=== PATIENT | male | born 1975 | race African-American/Black ===

== ENCOUNTER 2025-06-26 18:21 | Emergency (ER) | payer MEDICAID ==
[~2025-06-26] VITALS: Ht 177.8 cm; Wt 111.0 kg
[2025-06-26 18:23] VITALS: O2SAT 100
[2025-06-26 19:25] LABS: BASOPHILS % 0.9 % (0.0-2.0); EOSINOPHILS % 1.4 % (0.0-5.0); HEMATOCRIT. 41.4 % (42.0-52.0); HEMOGLOBIN. 13.4 g/dL (14.0-18.0); LYMPHOCYTES % 25.1 % (20.0-50.0); MEAN PLATELET VOLUME 9.0 fl (7.4-10.4); MONOCYTES % 12.5 % (2.0-8.0); NEUTROPHILS % 60.1 % (40.0-76.0); PLATELET 230 x1000/uL (130-400); RED BLOOD CELL COUNT 5.43 mill/uL (4.7-6.1); RED CELL DISTRIBUTION WIDTH 13.7 % (11.6-14.6)
[2025-06-26 19:34] LABS: INR 1.0
[2025-06-26 19:38] LABS: CREATININE 1.5 mg/dL (0.6-1.3); TROPONIN I HIGH SENSITIVITY 7 ng/L (3.0-53); UREA NITROGEN BLOOD 15 mg/dL (9-23)
[2025-06-26] MEDS: ONDANSETRON HCL 4MG/2ML INJ IV ONE (20:12)
[2025-06-26] MEDS: MORPHINE SULFATE 4 MG/ML INJ (FOR IV/IM USE) IV ONE (20:12)
[2025-06-26 21:13] LABS: TROPONIN I HIGH SENSITIVITY 8 ng/L (3.0-53)
[2025-06-26] MEDS ORDERED: DIAZ-570 MT (21:18)
[2025-06-26] MEDS ORDERED: DIAZEPAM 5 MG TABLET PO SCH (21:30)
[2025-06-26] MEDS ORDERED: DIAZEPAM 2 MG TABLET PO ONE (21:30)
[2025-06-26 21:31] VITALS: BP 135/64; PULSE 83; RESP 12; TEMP 36.6; O2SAT 98
[2025-06-26] MEDS ORDERED: IOHEXOL-350 100 ML BOTTLE ONE (23:48)
== END 2025-06-26 21:33 | disposition home or self-care (01) ==
LOC: ER 18:21 → CMPBEDREQ 06-28 07:22
DX: M54.50 Low back pain, unspecified (principal); I11.0 Hypertensive heart disease with heart failure; I50.9 Heart failure, unspecified; Z86.79 Personal history of other diseases of the circulatory system
CPT/HCPCS: 99285; 74174; 96374; 71275; 71045; 96375; 80048; 85025; 85610; 84484; 36415; 93005; Q9967; J2405; J2270